=== PATIENT | female | born 2000 | race Two or more races ===

== ENCOUNTER 2022-07-04 15:19 | Emergency (ER) | payer OTHER ==
[~2022-07-04] VITALS: Ht 157.5 cm; Wt 46.7 kg
[2022-07-04] MEDS ORDERED: PEPCID AC20 MG PO (18:45)
[2022-07-04] MEDS ORDERED: ONDANSETRON ODT8 MG PO (18:45)
== END 2022-07-04 19:12 | disposition home or self-care (01) ==
LOC: ER 15:19
DX: O21.0 Mild hyperemesis gravidarum (principal); Z3A.01 Less than 8 weeks gestation of pregnancy; R10.84 Generalized abdominal pain

== ENCOUNTER 2022-08-06 20:08 | Emergency (ER) | payer OTHER ==
[~2022-08-06] VITALS: Ht 157.5 cm; Wt 48.5 kg
[~2022-08-06 20:08] MED LIST: ONDANSETRON ODT8 MG PO; PEPCID AC20 MG PO
[2022-08-06] MEDS ORDERED: PRENA1 TRUE CO1 EACH (20:53)
[2022-08-06] MEDS ORDERED: TUSNEL-EX100 MG/5 M PO (23:21)
[2022-08-06] MEDS ORDERED: ZYRTEC10 M3 PO (23:21)
== END 2022-08-06 23:46 | disposition home or self-care (01) ==
LOC: ER 20:08
DX: O26.891 Other specified pregnancy related conditions, first trimester (principal); Z3A.12 12 weeks gestation of pregnancy; J00 Acute nasopharyngitis [common cold]; Z20.822 Contact with and (suspected) exposure to COVID-19

== ENCOUNTER 2022-10-29 14:52 | Outpatient (CLI) | payer OTHER ==
[~2022-10-29 14:52] MED LIST changes: +PRENA1 TRUE CO1 EACH; +TUSNEL-EX100 MG/5 M PO; +ZYRTEC10 M3 PO
== END 2022-10-29 15:52 | disposition home or self-care (01) ==
LOC: NST 14:52
PROVIDERS: ATTEND Obstetrics & Gynecology Maternal & Fetal Medicine
DX: Z34.82 Encounter for supervision of other normal pregnancy, second trimester (principal)

== ENCOUNTER 2022-12-18 16:26 | Outpatient (CLI) | payer OTHER | END 2022-12-18 18:17 | disposition home or self-care (01) | LOC: NST 16:26 | PROVIDERS: ATTEND Obstetrics & Gynecology | DX: Z34.83 Encounter for supervision of other normal pregnancy, third trimester (principal) ==

== ENCOUNTER 2023-01-16 10:34 | Outpatient (CLI) | payer OTHER | END 2023-01-16 11:00 | disposition home or self-care (01) | LOC: NST 10:34 | PROVIDERS: ATTEND Obstetrics & Gynecology | DX: Z34.83 Encounter for supervision of other normal pregnancy, third trimester (principal) ==

== ENCOUNTER → 2023-02-05 12:19 | Outpatient (CLI) | payer OTHER ==
[~2023-02-05 12:19] MED LIST changes: +IRON240 MG
== END | disposition home or self-care (01) ==
LOC: NST 12:19
PROVIDERS: ATTEND Obstetrics & Gynecology Maternal & Fetal Medicine
DX: Z34.83 Encounter for supervision of other normal pregnancy, third trimester (principal)

== ENCOUNTER 2023-02-05 13:15 | Inpatient (IN) | payer OTHER ==
[~2023-02-05] VITALS: Ht 157.5 cm; Wt 57.6 kg
[~2023-02-05 13:15] MED LIST changes: -IRON240 MG
[2023-02-06] MEDS ORDERED: IRON240 MG (22:43)
== END 2023-02-07 10:00 | disposition home or self-care (01) | DRG 833 ==
LOC: LDR 02-06 22:39 → OB/GYN 02-16 13:15
PROVIDERS: ADMIT Obstetrics & Gynecology Gynecology; ATTEND Obstetrics & Gynecology Gynecology
PROC: 4A1HXCZ Monitoring of Products of Conception, Cardiac Rate, External Approach (ICD-10-PCS; principal; 2023-02-06)
DX: O47.03 False labor before 37 completed weeks of gestation, third trimester (principal); Z3A.38 38 weeks gestation of pregnancy; Z20.822 Contact with and (suspected) exposure to COVID-19

== ENCOUNTER 2023-02-11 09:01 | Inpatient (IN) | payer OTHER ==
[~2023-02-11] VITALS: Ht 157.5 cm; Wt 3.2 kg
[~2023-02-11 09:01] MED LIST changes: +IRON240 MG
[2023-02-11 09:56] LABS: HEMATOCRIT 33.5 % (36.0-45.00); HEMOGLOBIN 10.8 g/dL (12.0-15.00); MEAN CELL VOLUME 79.3 fL (80.00-100.00); MEAN CORPUSCULAR HEMOGLOBIN 25.4 pg (27.00-32.0); MEAN CORPUSCULAR HGB CONC 32.1 g/dl (32.0-36.0); PLATELET COUNT 185 K/uL (150-450); RED BLOOD COUNT 4.23 M/uL (4.00-6.00)
[2023-02-11 10:12] LABS: INR < 0.93; PARTIAL THROMBOPLASTIN TIME 25.8 SECONDS (22.0-34.0); PROTHROMBIN TIME 9.8 SECONDS (9.0-11.5)
[2023-02-11 10:18] LABS: ALBUMIN 2.6 gm/dL (3.4-5.0); BILIRUBIN TOTAL 0.21 mg/dL (0.3-1.2); CALCIUM 8.3 mg/dL (8.5-10.1); CREATININE SERUM 0.64 mg/dL (0.55-1.02); GLOBULINA 3.9 G/DL (2.4-3.5); POTASSIUM 3.64 mEq/L (3.5-5.1); TOTAL PROTEIN 6.5 gm/dL (6.4-8.2)
[2023-02-12 07:41] LABS: HEMOGLOBIN 10.8 g/dL (12.0-15.00); MEAN CELL VOLUME 78.6 fL (80.00-100.00); MEAN CORPUSCULAR HEMOGLOBIN 25.6 pg (27.00-32.0); MEAN CORPUSCULAR HGB CONC 32.5 g/dl (32.0-36.0); PLATELET COUNT 175 K/uL (150-450)
== END 2023-02-13 11:34 | disposition home or self-care (01) | DRG 788 ==
LOC: OB/GYN 09:01 → LDR 09:01 → OB/GYN 14:38
PROVIDERS: Obstetrics & Gynecology; ADMIT Obstetrics & Gynecology; ATTEND Obstetrics & Gynecology
PROC: 4A1HXCZ Monitoring of Products of Conception, Cardiac Rate, External Approach (ICD-10-PCS; 2023-02-11)
PROC: 10D00Z1 Extraction of Products of Conception, Low, Open Approach (ICD-10-PCS; principal; 2023-02-11 21:30)
DX: O62.1 Secondary uterine inertia (principal); O99.824 Streptococcus B carrier state complicating childbirth; Z3A.39 39 weeks gestation of pregnancy; Z37.0 Single live birth; Z20.822 Contact with and (suspected) exposure to COVID-19